=== PATIENT | male | born 1985 | race Caucasian/White ===

== ENCOUNTER 2019-12-09 06:18 | Day surgery (SDC) | payer OTHER ==
[2019-12-04 12:50] LABS: microscopic required? NO
[2019-12-04 12:51] LABS: BASOPHIL % 0.5 % (0-2); CALCIUM 9.3 mg/dL (8.5-10.1); CARBON DIOXIDE 30.3 mmol/L (21-32); CHLORIDE SERUM 103 mmol/L (98-107); CREATININE SERUM 0.8 mg/dL (0.7-1.3); GFR1 > 60 mL/min; GLUCOSE SERUM 91 mg/dL (74-106); PLATELET COUNT 242 x10^3mcL (130-400); POTASSIUM SERUM 4.1 mmol/L (3.5-5.1); SODIUM SERUM 140 mmol/L (136-145)
[2019-12-04 13:53] LABS: urine erythrocyte NEGATIVE (NEGATIVE)
[~2019-12-09] VITALS: Ht 162.6 cm; Wt 80.3 kg
[2019-12-09 06:41] VITALS: BP 141/83
[2019-12-09 06:48] VITALS: BP 141/83
[2019-12-09 06:50] VITALS: BP 141/83
[2019-12-09 15:46] VITALS: BP 147/91
== END 2019-12-09 15:35 | disposition home or self-care (01) ==
LOC: OR 06:18 → DS 06:18 → OR 07:30 → DS 15:35
PROVIDERS: Neuromusculoskeletal Medicine, Sports Medicine
DX: S46.211A Strain of muscle, fascia and tendon of other parts of biceps, right arm, initial encounter (principal); X58.XXXA Exposure to other specified factors, initial encounter; Y93.89 Activity, other specified; Y92.89 Other specified places as the place of occurrence of the external cause; Y99.8 Other external cause status
CPT/HCPCS: J0690; J1170; J2405; J3010; J3490; Q0092